=== PATIENT | male | born 1960 | race Caucasian/White ===

== ENCOUNTER 2016-08-26 10:58 | Emergency (ER) | payer BC ==
[~2016-08-26 10:58] MED LIST: ADVIL PO; NORCO1 TA1 PO
== END 2016-08-26 13:03 | disposition home or self-care (01) ==
LOC: ER 10:58
DX: M25.561 Pain in right knee (principal); M54.5 Low back pain; Z79.899 Other long term (current) drug therapy
CPT/HCPCS: 72100; 99283